=== PATIENT | male | born 1985 | race Caucasian/White ===

== ENCOUNTER 2019-06-11 17:33 | Emergency (ER) | payer MEDICAID, OTHER ==
--- NOTE | 2019-06-11 20:07 | EDM.PDOC ---
ED HPI GENERAL MEDICAL PROBLEM - General Chief Complaint: Upper Extremity Injury/Pain Stated Complaint: BACK PAIN-MUSCLE SPASM Time Seen by Provider: 06/11/19 17:48 Source of Information: Reports: Patient History Limitations: Reports: No Limitations - History of Present Illness INITIAL COMMENTS - FREE TEXT/NARRATIVE: The patient presents with shoulder pain. He tried OTC analgesics without relief. Onset: Gradual Quality: Reports: Ache right shouler Pain Score (Numeric/FACES): 6 - Related Data Allergies Allergy/AdvReac Type Severity Reaction Status Date / Time Sulfa (Sulfonamide Allergy Hives Verified 06/11/19 17:59 Antibiotics) Home Meds: Home Meds ALPRAZolam [Xanax] 0.5 mg PO Q4HR PRN 06/11/19 [History] Divalproex Sodium [Depakote] 500 mg PO TID 06/11/19 [History] buPROPion [Wellbutrin] 450 mg PO DAILY 06/11/19 [History] busPIRone [Buspar] 10 mg PO DAILY 06/11/19 [History] Past Medical History HEENT History: Reports: Impaired Vision Gastrointestinal History: Reports: Hiatal Hernia Musculoskeletal History: Reports: Fracture Neurological History: Reports: Seizure Psychiatric History: Reports: Anxiety, Bipolar - Past Surgical History GI Surgical History: Reports: Appendectomy, Sammi Fundoplication, Other (See Below) Other GI Surgeries/Procedures: exp lap Social & Family History - Tobacco Use Smoking Status *Q: Never Smoker - Recreational Drug Use Recreational Drug Type: Reports: Marijuana/Hashish Other Recreational Drug Type: medical marijuana Review of Systems - Review of Systems Review Of Systems: See Below Respiratory: Reports: No Symptoms Cardiovascular: Reports: No Symptoms GI/Abdominal: Reports: No Symptoms Musculoskeletal: Reports: Back Pain Neurological: Reports: No Symptoms ED EXAM, GENERAL - Physical Exam Exam: See Below Exam Limited By: No Limitations General Appearance: Alert, WD/WN, No Apparent Distress Back Exam: Normal Inspection, Decreased Range of Motion Neurological: Alert, Oriented, Normal Cognition. No: Abnormal Gait, Abnormal Reflexes, Sensory/Motor Deficit Course - Vital Signs Last Recorded V/S: Last Vital Signs Temp 35.1 C L 06/11/19 17:58 Pulse 94 06/11/19 17:58 Resp 20 06/11/19 17:58 BP 149/102 H 08/17/19 17:58 Pulse Ox 98 06/11/19 17:58 - Re-Assessments/Exams Free Text/Narrative Re-Assessment/Exam: 06/20/19 12:34 The patient has a shoulder strain with a normal exam. He was given Flexeril Rx and will use OTC analgesics. 06/20/19 12:35 Departure - Departure Time of Disposition: 20:00 Disposition: DC/Tfer to [facility] Condition: Good Clinical Impression: Right shoulder pain - Discharge Information *PRESCRIPTION DRUG MONITORING PROGRAM REVIEWED*: Not Applicable *COPY OF PRESCRIPTION DRUG MONITORING REPORT IN PATIENT MARY: Not Applicable Instructions: Shoulder Pain, Shoulder Range of Motion Exercises Referrals: PCP,None [Primary Care Provider] - Forms: ED Department Discharge Additional Instructions: Take your usual medications for pain. Take hydrocodone as needed for pain. See your doctor when you return home. Return to the ER as needed.
== END 2019-06-11 20:34 ==
LOC: JP.ED 17:33
DX: M25.511 Pain in right shoulder (principal); F41.9 Anxiety disorder, unspecified; Z88.2 Allergy status to sulfonamides; Z79.899 Other long term (current) drug therapy
CPT/HCPCS: 99284